=== PATIENT | female | born 1955 | race Caucasian/White ===

== ENCOUNTER → 2019-04-04 | Outpatient (CLI) | payer BC ==
[2019-04-04 13:17] LABS: HCT 42.1 % (34.0-46.0); MCH 31.3 pg (25.0-35.0); MCHC 33.1 g/dL (31.0-37.0); MCV 94.6 fL (80.0-100.0); Mean Platelet Volume 9.5; Platelet Count 246 k/uL (150-450); RBC 4.46 m/uL (3.80-5.40); RDW 13.2 % (11.5-15.5); WBC 6.4 k/uL (3.8-10.6)
[2019-04-04 13:22] LABS: Albumin 4.2 g/dL (3.5-5.0); Calcium 9.5 mg/dL (8.4-10.2); Potassium 4.5 mmol/L (3.5-5.1); Total Bilirubin 0.7 mg/dL (0.2-1.3); Total Protein 7.2 g/dL (6.3-8.2)
[2019-04-04 13:33] LABS: INR 0.9 (<1.2); Partial Thromboplastin Time 25.1 sec (22.0-30.0); Prothrombin Time 9.9 sec (9.0-12.0)
[2019-04-04 13:37] LABS: Appearance,Urine Clear (Clear); Bacteria,Urine Occasional /hpf; Bilirubin,Urine Negative (Negative); Blood,Urine Small (Negative); Color,Urine Yellow; Glucose,Urine (UA) Negative (Negative); Ketones,Urine Negative (Negative); Leukocyte Esterase,Urine Negative (Negative); Mucus,Urine Occasional /hpf; Nitrite,Urine Negative (Negative); Protein,Urine Negative (Negative); RBC,Urine 1 /hpf (0-5); Squamous Epithelial Cell,Urine 1 /hpf (0-4); Urobilinogen,Urine <2.0 mg/dL (<2.0); WBC,Urine 2 /hpf (0-5)
== END | disposition home or self-care (01) ==
LOC: LABPAT 12:29
PROVIDERS: ATTEND Orthopaedic Surgery
DX: Z01.812 Encounter for preprocedural laboratory examination (principal)
CPT/HCPCS: 36415; 80053; 81001; 85027; 85610; 85730; 86850; 86900; 86901; 87070; 93005

== ENCOUNTER 2019-04-15 09:59 | Inpatient (IN) | payer BC ==
[2019-04-11 11:46] VITALS: BMI 33.1
[~2019-04-15 09:59] MED LIST: ACETAMINOPHEN TAB 500 MG TAB PO ONE; DEXAMETHASONE SOD PHOSPHATE 10 MG/ML 1 ML VIAL IV ONE; GABAPENTIN 300 MG CAP PO ONE; HYDROmorphone 0.5 MG/0.5 ML SYRINGE IVP PRN; LIDOCAINE 1% 20 ML VIAL (10MG/ML) FOR IV START INTRADERMA PRN; MELOXICAM 7.5 MG TAB PO ONE; MIDAZOLAM 2 MG/2 ML VIAL IV PRN; ONDANSETRON 4 MG/2 ML VIAL IVP ONE; SCOPOLAMINE 1.5MG/72HR PATCH TRANSDERM ONE; TRANEXAMIC ACID 1,000 MG in SODIUM CHLORIDE 0.9% 100 ML IVPB ONE
[2019-04-15] MEDS: LACTATED RINGERS 1,000 ML IV SCH (10:49)
[2019-04-15] MEDS ORDERED: MIDAZOLAM 2 MG/2 ML VIAL IV ONE (11:11)
[2019-04-15] MEDS ORDERED: HYDROcodone/APAP 5-325MG 1 EACH TAB PO PRN ×2 (11:34)
[2019-04-15] MEDS ORDERED: HYDROmorphone 1 MG/ML 1 ML SYRINGE IVP PRN (11:34)
[2019-04-15] MEDS ORDERED: ONDANSETRON 4 MG/2 ML VIAL IVP PRN (11:34)
[2019-04-15] MEDS ORDERED: MAGNESIUM HYDROXIDE 2,400 MG/10 ML CUP PO PRN (11:34)
[2019-04-15] MEDS ORDERED: hydrOXYzine PAMOATE 25 MG CAP PO PRN (11:34)
[2019-04-15] MEDS ORDERED: HYDROmorphone 0.5 MG/0.5 ML SYRINGE IVP PRN ×2 (11:34)
[2019-04-15] MEDS ORDERED: NALOXONE 0.4 MG/ML 1 ML VIAL IV PRN (11:34)
[2019-04-15] MEDS ORDERED: DIAZEPAM 5 MG TAB PO PRN (11:34)
[2019-04-15] MEDS ORDERED: fentaNYL (PF) 50 MCG/ML 2 ML AMP ONE (11:52)
[2019-04-15] MEDS ORDERED: PROPOFOL 10 MG/ML 20 ML VIAL IV ONE (11:52)
[2019-04-15] MEDS ORDERED: SODIUM CHLORIDE 0.9% 100 ML BAG ONE (11:52)
[2019-04-15] MEDS ORDERED: TRANEXAMIC ACID 1,000 MG/10 ML VIAL ONE (11:52)
[2019-04-15] MEDS ORDERED: MIDAZOLAM 2 MG/2 ML VIAL ONE (11:52)
[2019-04-15] MEDS ORDERED: HEPARIN SODIUM,PORCINE 10,000 UNIT/ML 1 ML VIAL ONE (11:52)
[2019-04-15] MEDS ORDERED: PHENYLEPHRINE-0.9% NACL SYG 1 MG/10 ML SYRINGE ONE (11:52)
[2019-04-15] MEDS ORDERED: LACTATED RINGERS 1,000 ML BAG IV ONE (11:52)
[2019-04-15] MEDS: ROPIVACAINE 246.25 MG, EPINEPHrine 0.5 MG, KETOROLAC 30 MG, cloNIDine HCL/PF 80 MCG, WA... MISCELLANE ONE ×10 (12:34→13:05)
[2019-04-15] MEDS ORDERED: LACTATED RINGERS 1,000 ML IV ONE (13:06)
--- NOTE | 2019-04-15 13:14 | P.OP ---
Date of Procedure: 04/15/19 Preoperative Diagnosis: severe osteoarthritis right hip Postoperative Diagnosis: severe osteoarthritis right hip Procedure(s) Performed: right total hip arthroplasty with a direct anterior approach Implants: Guzman and nephew Polarstem size 3 standard [employer]zman [employer] Nephew R3, 3 hole acetabular shell, 52 mm [employer]hew reflection 6.5 mm cancellus screw, 20 mm 2 [employer]hew R3, XLPE 20 acetabular liner [employer]hew Oxinium femoral head 36 m, -3 All components were press-fit. The articulation is Oxinium on polyethylene. Anesthesia: spinal Surgeon: Ravi Grady Talent Acquisition Relationship Manager #1: Trinidad Morgan Estimated Blood Loss (ml): 200 (extent 5 mL returned with Cell Saver) Pathology: other (femoral head) Condition: stable Disposition: PACU Indications for Procedure: After failure of conservative treatment we discussed the surgical and nonsurgical treatment options at length. Patient wishes to proceed with a total hip arthroplasty with a direct anterior approach. Complications specific to this procedure were discussed at length, including but not limited to infection, leg length discrepancy, dislocation, and nerve injury. Patient is aware of all these complications and informed consent was obtained Operative Findings: the operative findings are consistent with severe osteoarthritis of the right hip Description of Procedure: Patient was seen and evaluated in the preoperative area, consent was reviewed, and the surgical site was marked with a skin marker. Patient was then brought to the operating room and given prophylactic antibiotics intravenously. 1 g of Tranexamic acid was also given. A spinal anesthetic was administered by the anesthesia department. The patient was then placed on the [place] table with the bony prominences well-padded. The hip area was then prepped and draped in usual sterile fashion. A universal timeout was then performed, which confirmed the patient's name, surgical site, ALLERGIES, and procedure being performed. Next the incision site was located at 1 cm distal and 1 cm lateral to the anterior superior iliac spine. The skin and subcutaneous tissues were sharply incised. Incision was carefully dissected down to the fascia overlying the tensor fascia raman muscle. This fascia was then incised in line with the incision. Next, using blunt finger dissection, the tensor fascia raman muscle was dissected off its investing fascia. The muscle was then carefully retracted laterally with a cobra retractor over the lateral neck of the femur. Next, the circumflex vessels were identified and cauterized using the AquaMantis device. The anterior hip capsule was then exposed. The capsule was then opened and an inverted T fashion. Cobra retractors were then placed intracapsularly. The proximal femur was then visualized. The femoral neck was then osteotomized appropriate level above the lesser trochanter. Small amount of traction was placed with the [place] table. A small wedge of bone was then removed from the remaining femoral head. Next, using a corkscrew femoral head was easily removed from the acetabulum. On gross visual inspection, the femoral head had complete loss of articular cartilage in multiple periarticular osteophytes. Attention was then turned to the acetabulum. the acetabulum was exposed and any remaining labrum was excised. Sequential reaming of the acetabulum was performed using fluoroscopic guidance. When the appropriate size was reached, a trial was then placed. The position and fit of the trial was checked with fluoroscopy. The trial was then removed. Then, u sing fluoroscopic guidance, the final implant was impacted at 20 of anteversion and 40 of abduction, and fully seated in the acetabulum. 2 screws were then placed in the acetabulum. Again fluoroscopy was used to check position of the screws. Next, the liner was then impacted, with a 20 elevated liner located in the anterior superior quadrant. Component locking was confirmed. Attention was then directed to the femur. With the aid of the [place] table, the femur was externally rotated to approximately 130, extended, and abducted under the opposite leg. A side hook was then placed under the proximal femur, and the side hook elevator was used to elevate the proximal femur. Retractors were then placed. A capsular release was performed, as well as a release of the conjoined tendon, which afforded excellent visualization of the proximal femur. Next, a box osteotome was used to lateralize the proximal femur. A deckhand sponge boat was then used to locate the femoral canal. Sequential broaching was then performed with appropriate size which afforded excellent fixation in the proximal femur. A trial was then placed with appropriate head and neck, and the hip was gently reduced with the aid of the [place] table. Fluoroscopy was then used to check position of the components, as well as to ensure equal leg lengths. The hip was then gently dislocated and the trials were then removed. Final implants were then impacted and the hip was again reduced. Final fluoroscopic x-rays confirmed that the components were in anatomic position, as well as equal leg lengths. The hip was also taken through range of motion, and found to be stable. The hip was then copiously irrigated with antibiotic solution with pulsatile lavage. The hip was then irrigated with Irrisept solution. The soft tissues were then injected with a ropivacaine solution, which consisted of 246.25 mg of ropivacaine, 0.5 mg of epinephrine, 30 mg of Toradol, 80 g of clonidine, and 48.45 mL of sterile water, for a total of 100 mL of fluid injected. A second dose of 1 g of Tranexamic acid was also given. the fascia was then closed with 2-0 strata fix suture. The subcutaneous tissue was closed with 3-0 Vicryl. The subcuticular tissue was closed with 3-0 strata fix suture. The skin was then closed with Dermabond glue and a sterile silver dressing. The patient was then transferred to the recovery room in stable condition. The driller's assistant LASHELL Corrigan was required due to the complexity of surgery, and the need for skilled surgical services asst for positioning, draping, exposure, retraction, and closure of the wound.
--- NOTE | 2019-04-15 13:41 | XR ---
EXAMINATION TYPE: XR Hip Limited RT, FL guidance operating room DATE OF EXAM: 04/15/2019 CLINICAL HISTORY: Right hip arthroplasty. Fluoroscopic documentation. TECHNIQUE: Fluoroscopy. COMPARISON: None. FINDINGS: Fluoroscopic guidance was provided during procedure performed by Dr. Grady. A total of 42 seconds of fluoroscopic time was utilized during the procedure and 2 spot images was acquired dur ing right hip arthroplasty. IMPRESSION: As Above.
--- NOTE | 2019-04-15 14:01 | XR ---
EXAMINATION TYPE: XR Hip Limited RT DATE OF EXAM: 04/15/2019 CLINICAL HISTORY: Right hip pain and osteoarthritis. TECHNIQUE: Single AP portable view of right hip is obtained immediately postoperatively. COMPARISON: None. FINDINGS: Metallic hardware from right hip arthroplasty is seen and appears satisfactory in alignment and position. There is evidence of recent surgery with subcutaneous gas noted laterally. IMPRESSION: Metallic hardware from right hip arthroplasty is satisfactory in position.
[2019-04-15] MEDS: SODIUM CHLORIDE 0.9% 1,000 ML IV SCH (15:45)
[2019-04-15] MEDS ORDERED: LORazepam 0.5 MG TAB PO PRN (16:57)
--- NOTE | 2019-04-15 18:02 | P.CONS ---
History of Present Illness - Reason for Consult Consult date: 04/15/19 consult for medical management Requesting physician: Ravi Rodriguez - Chief Complaint consult for medical management - History of Present Illness the patient is a 63-year-old obese female with a past medical history of essential hypertension and dyslipidemia who is currently admitted to the primary orthopedic service and is postop after having a right total hip arthroplasty secondary to severe right hip osteoarthritis. the patient is doing well reports that her pain is well-controlled, she reports that she was cleared preoperatively by her PCP after having a echocardiogram done that was reportedly normal, she denies having any chest pain, denies shortness of breath, denies nausea vomiting or abdominal pain. Actually is hungry and would like to eat. the patient currently taken Macrobid for UTI since last is supposed to complete a 7 day course Review of Systems pertinent positives per HPI all other review of systems otherwise negative Past Medical History Past Medical History: Hypertension, Osteoarthritis (OA) Additional Past Medical History / Comment(s): SEASONAL ALLERGIES., STATES UTI- STARTED ON MACROBID - STATES SHE INFORMED DR RODRIGUEZ'S OFFICE., STATES SLIGHT COLD- SHE THINKS IT IS SINUS- NO COUGH- STATES SHE SPOKE TO P.A. AT DR STEPHEN OFFICE ABOUT THIS ALSO., USES CANE PRN. History of Any Multi-Drug Resistant Organisms: None Reported Past Surgical History: Cholecystectomy Additional Past Surgical History / Comment(s): D & C, COLONOSCOPY Past Anesthesia/Blood Transfusion Reactions: Postoperative Nausea & Vomiting (PONV) Past Psychological History: Anxiety Smoking Status: Never smoker Past Alcohol Use History: None Reported Past Drug Use History: None Reported - Past Family History Brother(s) Family Medical History: Cancer Additional Family Medical History / Comment(s): PROSTATE CANCER Medications and Allergies Home Medications Medication Instructions Recorded Confirmed Type Acetaminophen/Diphenhydramine 1 tab PO HS 04/11/19 04/11/19 History [Tylenol PM 500-25mg] Atorvastatin Calcium [Lipitor] 20 mg PO HS 04/11/19 04/11/19 History Bisoprolol Fumarate [Zebeta] 10 mg PO HS 04/11/19 04/11/19 History Calcium Carbonate/Vitamin D3 1 each PO BID 04/11/19 04/11/19 History [Calcium 600-Vit D3 800 Caplet] Cyanocobalamin [Vitamin B-12] 2,000 mcg PO DAILY 04/11/19 04/11/19 History LORazepam [Ativan] 0.5 - 1 mg PO BID PRN 04/11/19 04/11/19 History Levocetirizine Dihydrochloride 5 mg PO HS 04/11/19 04/11/19 History [Xyzal] Naproxen 250 mg PO BID PRN 04/11/19 04/11/19 History Nitrofurantoin Monohyd/M-Cryst 100 mg PO Q12HR 04/11/19 04/11/19 History [Macrobid] Potassium Chloride [Klor-Con 20] 20 meq PO HS 04/11/19 04/11/19 History Tacrolimus Ointment 1 applicate TOPICAL DIRECTED 04/11/19 History Allergies Allergy/AdvReac Type Severity Reaction Status Date / Time sulfamethoxazole Allergy Unknown Rash/Hives Verified 04/11/19 11:08 [From ] trimethoprim [From ] Allergy Unknown Rash/Hives Verified 04/11/19 11:08 Physical Exam Vitals: Vital Signs Temp Pulse Pulse Resp BP Pulse Ox 04/15/19 16:12 95 04/15/19 14:35 68 16 129/65 97 04/15/19 14:20 66 16 122/72 98 04/15/19 14:05 67 16 123/73 71 L 04/15/19 13:50 78 16 128/60 96 04/15/19 13:36 97.6 F 90 16 126/57 95 04/15/19 10:19 98.9 F 86 20 163/89 98 Intake and Output 04/15/19 04/15/19 04/15/19 06:59 14:59 22:59 Intake Total 1300 Balance 1300 Intake: IV 1300 Other: Weight 95.1 kg Constitutional: No acute distress, conversant, pleasant Eyes: Anicteric sclerae, moist conjunctiva, no lid-lag, PERRLA ENMT: NC/AT,Oropharynx clear, no erythema, exudates Neck:Supple, FROM, no masses, or JVD, No carotid bruits; No thyromegaly Lungs: Clear to auscultation, Clear to percussion, Normal respiratory effort, no accessory muscle use Cardiovascular: Heart regular in rate and rhythm, No murmurs, gallops, or rubs no peripheral edema Abdominal: Soft Nontender, nom distended, no guarding, no rebound or rigidity, Normoactive bowel sounds No hepatomegaly, No splenomegaly, No palpable mass No abdominal wall hernia noted Skin: Normal temperature, tone, texture, turgor, No induration No subcutaneous nodules, No rash, lesions, No ulcers Extremities:No digital cyanosis No clubbing, Pedal pulses intact and symmetrical Radial pulses intact and symmetrical Normal gait and station, No calf tenderness Psychiatric: Alert and oriented to person, place and time, Appropriate affect Intact judgement Neuro: Muscles Strength 5/5 in all 4 extremities, Sensation to light touch grossly present throughout, Cranial nerves II-XII grossly intact. No focal sensory deficits Assessment and Plan Assessment: essential hypertension Hyperlipidemia Anxiety UTI Status post right total hip arthroplasty History of right hip osteoarthritis Plan: patient admitted to primary orthopedic service status post right total hip arthroplasty secondary to severe right hip osteoarthritis. Patient doing well hemodynamically stable restarted her home medications. Likely discharge tomorrow if things progressed well. continue perioperative antibiotics until then
[2019-04-15] MEDS: ASPIRIN 325 MG TAB PO SCH (20:22)
[2019-04-15] MEDS: CALCIUM CARB-VIT D 500MG-200UN 1 EACH TAB PO SCH (20:22)
[2019-04-15] MEDS: NITROFURANTOIN MONOHYD/M-CRYST 100 MG CAP PO SCH (20:23)
[2019-04-15] MEDS ORDERED: SENNOSIDES-DOCUSATE SODIUM 1 EACH TAB PO SCH (21:00)
[2019-04-15] MEDS ORDERED: LORATADINE 10 MG TAB PO SCH (21:00)
[2019-04-15] MEDS ORDERED: POTASSIUM CHLORIDE ER 20 MEQ TAB.ER PO SCH (21:00)
[2019-04-15] MEDS ORDERED: ATORVASTATIN 20 MG TAB PO SCH (21:00)
[2019-04-15] MEDS ORDERED: BISOPROLOL 5 MG TAB PO SCH (21:00)
[2019-04-16 02:03] VITALS: PULSE 68
[2019-04-16] MEDS: SODIUM CHLORIDE 0.9% 1,000 ML IV SCH (04:47)
[2019-04-16] MEDS: LACTATED RINGERS 1,000 ML IV SCH (04:47)
[2019-04-16] MEDS: CALCIUM CARB-VIT D 500MG-200UN 1 EACH TAB PO SCH (07:47)
[2019-04-16] MEDS: NITROFURANTOIN MONOHYD/M-CRYST 100 MG CAP PO SCH (07:49)
[2019-04-16] MEDS: ASPIRIN 325 MG TAB PO SCH (07:49)
[2019-04-16 07:54] VITALS: BP 102/68; RESP 15; TEMP 97.9
[2019-04-16 08:01] LABS: Basophils % (A) 0 %; Eosinophils % (A) 0 %; HCT 31.9 % (34.0-46.0); Lymphocytes # (A) 0.8 k/uL (1.0-4.8); Lymphocytes % (A) 9 %; MCH 30.8 pg (25.0-35.0); MCHC 32.2 g/dL (31.0-37.0); MCV 95.7 fL (80.0-100.0); Mean Platelet Volume 9.6; Monocytes # (A) 0.9 k/uL (0-1.0); Monocytes % (A) 10 %; Neutrophils # (A) 7.5 k/uL (1.3-7.7); Neutrophils % (A) 79 %; Platelet Count 182 k/uL (150-450); RBC 3.34 m/uL (3.80-5.40); RDW 13.3 % (11.5-15.5); WBC 9.4 k/uL (3.8-10.6)
[2019-04-16 08:02] LABS: HGB 10.3 gm/dL (11.4-16.0)
--- NOTE | 2019-04-16 08:06 | P.DS ---
Providers Date of admission: 04/15/19 09:59 Expected date of discharge: 04/16/19 Attending physician: Ravi Grady Consults: 04/15/19 11:34 Consult Physician Routine Consulting Provider: María Tsai Consult Reason/Comments: medical management Do you want consulting provider notified?: Yes Primary care physician: Nuvia Pineda - Discharge Diagnosis(es) (1) Osteoarthritis of right hip Current Visit: Yes Status: Acute (2) S/P total hip arthroplasty Current Visit: Yes Status: Acute Hospital Course: This is a 63-year-old female with known history of degenerative arthritis of the right hip. The patient presents for evaluation. After discussion and consideration patient elects to proceed with total hip arthroplasty. The patient is seen preoperatively by Dr. Grady and medically cleared for surgery by their primary care physician. Patient is admitted to [facility] on 04/15/2019 for total hip arthroplasty. The procedures performed without complication or sequelae. The patient is doing well postoperatively. Labs and vital signs are stable on day of discharge. On day of discharge patient's hip incision is healing well. There is minimal erythema. There is no drainage noted at this time. There is minimal soft tissue swelling to the hip and thigh. Patient has full foot and ankle motion without difficulty or pain. Calf is soft and nontender to palpation. Neurovascular status to the right lower extremity is intact. Patient is discharged home in good condition. Opioid start talking form is reviewed and signed at patient bedside. Please see med rec for accurate list of home medications. Plan - Discharge Summary Discharge Rx Participant: Yes New Discharge Prescriptions: New Aspirin 325 mg PO BID #60 tab HYDROcodone/APAP 5-325MG [[place] 5-325] 1 - 2 tab PO Q6HR PRN #56 tab PRN Reason: Pain Sennosides [Senokot] 2 tab PO DAILY PRN #60 tablet PRN Reason: Constipation No Action Cyanocobalamin [Vitamin B-12] 2,000 mcg PO DAILY Atorvastatin Calcium [Lipitor] 20 mg PO HS Potassium Chloride [Klor-Con 20] 20 meq PO HS Nitrofurantoin Monohyd/M-Cryst [Macrobid] 100 mg PO Q12HR LORazepam [Ativan] 0.5 - 1 mg PO BID PRN PRN Reason: Anxiety Acetaminophen/Diphenhydramine [Tylenol PM 500-25mg] 1 tab PO HS Tacrolimus Ointment 1 applicate TOPICAL DIRECTED Naproxen 250 mg PO BID PRN PRN Reason: Pain Levocetirizine Dihydrochloride [Xyzal] 5 mg PO HS Calcium Carbonate/Vitamin D3 [Calcium 600-Vit D3 800 Caplet] 1 each PO BID Bisoprolol Fumarate [Zebeta] 10 mg PO HS Discharge Medication List Acetaminophen/Diphenhydramine [Tylenol PM 500-25mg] 1 tab PO HS 04/11/19 [History] Atorvastatin Calcium [Lipitor] 20 mg PO HS 04/11/19 [History] Bisoprolol Fumarate [Zebeta] 10 mg PO HS 04/11/19 [History] Calcium Carbonate/Vitamin D3 [Calcium 600-Vit D3 800 Caplet] 1 each PO BID 04/11/19 [History] Cyanocobalamin [Vitamin B-12] 2,000 mcg PO DAILY 04/11/19 [History] LORazepam [Ativan] 0.5 - 1 mg PO BID PRN 04/11/19 [History] Levocetirizine Dihydrochloride [Xyzal] 5 mg PO HS 04/11/19 [History] Naproxen 250 mg PO BID PRN 04/11/19 [History] Nitrofurantoin Monohyd/M-Cryst [Macrobid] 100 mg PO Q12HR 04/11/19 [History] Potassium Chloride [Klor-Con 20] 20 meq PO HS 04/11/19 [History] Tacrolimus Ointment 1 applicate TOPICAL DIRECTED 04/11/19 [History] Aspirin 325 mg PO BID #60 tab 04/16/19 [Rx] HYDROcodone/APAP 5-325MG [[place] 5-325] 1 - 2 tab PO Q6HR PRN #56 tab 04/16/19 [Rx] Sennosides [Senokot] 2 tab PO DAILY PRN #60 tablet 04/16/19 [Rx] Follow up Appointment(s)/Referral(s): Ravi Grady DO [Doctor of Osteopathic Medicine] - 2 Weeks Activity/Diet/Wound Care/Special Instructions: Weightbearing as tolerated with walker. Leave dressing intact. Dressing may be removed by home care nurse or by patient in 10 days. May shower with dressing on. Recommend use of compression stockings daily for at least 2 weeks during the day to help prevent swelling and blood clots. May remove at night before sleeping. Please follow-up with [facility] in 2 weeks and call with any questions or concerns, . Discharge Disposition: HOME WITH HOME HEALTH SERVICES
[2019-04-16] MEDS ORDERED: CYANOCOBALAMIN 500 MCG TAB PO SCH (09:00)
[2019-04-16] MEDS ORDERED: MELOXICAM 7.5 MG TAB PO SCH (09:00)
--- NOTE | 2019-04-16 12:18 | P.PN ---
Subjective Progress Note Date: 04/16/19 patient seen and examined at bedside sitting up in chair doing well no complaints of pain, has been working well with physical therapy. She is dressed and ready to go, no acute events overnight Objective - Vital Signs Vital signs: Vital Signs Temp 97.9 F 04/16/19 07:00 Pulse 68 04/16/19 07:00 Resp 15 04/16/19 07:00 BP 102/68 04/16/19 07:00 Pulse Ox 95 04/16/19 07:00 Intake & Output 04/15/19 04/16/19 04/16/19 18:59 06:59 18:59 Intake Total 1300 1300 160 Balance 1300 1300 160 Weight 95.1 kg 95.1 kg Intake: IV 1300 Intake, IV Titration 900 Amount Sodium Chloride 0.9% 1, 900 000 ml @ 70 mls/hr IV . [id number] [facility] Rx#:[id number] Oral 400 160 Other: Voiding Method Toilet # Voids 3 - Exam Constitutional: No acute distress, conversant, pleasant Eyes: Anicteric sclerae, moist conjunctiva, no lid-lag, PERRLA ENMT: NC/AT,Oropharynx clear, no erythema, exudates Neck:Supple, FROM, no masses, or JVD, No carotid bruits; No thyromegaly Lungs: Clear to auscultation, Clear to percussion, Normal respiratory effort, no accessory muscle use Cardiovascular: Heart regular in rate and rhythm, No murmurs, gallops, or rubs no peripheral edema Abdominal: Soft Nontender, nom distended, no guarding, no rebound or rigidity, Normoactive bowel sounds No hepatomegaly, No splenomegaly, No palpable mass No abdominal wall hernia noted Skin: Normal temperature, tone, texture, turgor, No induration No subcutaneous nodules, No rash, lesions, No ulcers Extremities:No digital cyanosis No clubbing, Pedal pulses intact and symmetrical Radial pulses intact and symmetrical Normal gait and station, No marky f tenderness Psychiatric: Alert and oriented to person, place and time, Appropriate affect Intact judgement Neuro: Muscles Strength 5/5 in all 4 extremities, Sensation to light touch grossly present throughout, Cranial nerves II-XII grossly intact. No focal sensory deficits - Labs CBC & Chem 7: 04/16/19 07:03 Labs: Abnormal Lab Results - Last 24 Hours (Table) 04/16/19 Range/Units 07:03 RBC 3.34 L (3.80-5.40) m/uL Hgb 10.3 L D (11.4-16.0) gm/dL Hct 31.9 L (34.0-46.0) % Lymphocytes # 0.8 L (1.0-4.8) k/uL Assessment and Plan Assessment: essential hypertension * blood pressure stable and controlled continue home regimen Hyperlipidemia * continued on statin therapy Anxiety * stable on home regimen UTI * Continue Macrobid Status post right total hip arthroplasty * postop day #1 * Pain in control, ambulating well with physical therapy History of right hip osteoarthritis disposition * Patient medically cleared for discharge
== END 2019-04-16 12:11 | disposition home health service (06) | DRG 470 ==
LOC: 2ORMAIN 09:59 → 4SSUR 13:49
PROVIDERS: ADMIT Orthopaedic Surgery; ATTEND Orthopaedic Surgery
PROC: 0SR906A Replacement of Right Hip Joint with Oxidized Zirconium on Polyethylene Synthetic Substitute, Uncemented, Open Approach (ICD-10-PCS; principal; 2019-04-15 11:30)
DX: M16.11 Unilateral primary osteoarthritis, right hip (principal); N39.0 Urinary tract infection, site not specified; E66.9 Obesity, unspecified; F41.9 Anxiety disorder, unspecified; I10 Essential (primary) hypertension; E78.5 Hyperlipidemia, unspecified; R26.9 Unspecified abnormalities of gait and mobility; Z90.49 Acquired absence of other specified parts of digestive tract; Z88.2 Allergy status to sulfonamides; Z88.8 Allergy status to other drugs, medicaments and biological substances; Z79.899 Other long term (current) drug therapy; Z98.890 Other specified postprocedural states; Z80.42 Family history of malignant neoplasm of prostate
CPT/HCPCS: 73501; 85025; 86850; 86891; 86900; 86901; 88300